=== PATIENT | female | born 1945 | race Two or more races ===

== ENCOUNTER 2018-08-05 19:35 | Emergency (ER) | payer MEDICARE, OTHER ==
[~2018-08-05] VITALS: Ht 157.5 cm; Wt 72.6 kg
[~2018-08-05 19:35] MED LIST: CLIN1TS TOP; CLIN300 PO; HYDACE5 PO; NAPR500 PO; OXYACE5T PO; RXOXYACE PO
== END 2018-08-05 22:29 | disposition left against medical advice (07) ==
LOC: ER 19:35
DX: Z53.21 Procedure and treatment not carried out due to patient leaving prior to being seen by health care provider (principal)
CPT/HCPCS: 36415; 99281-25

== ENCOUNTER → 2021-07-30 | Outpatient (CLI) | payer MEDICARE, OTHER ==
[~2021-07-30] MED LIST changes: +ALPR.5 PO; +AMLO5 PO; +AZIT250 PO; +CELECOXIB200 M1 PO; +CLON.1 PO; +CLOP75 PO; +FLUT.05NI; +LOSA50 PO; +NEBI5 PO; +NICO2 PO; +NICO21TP TD; +PANT40 PO; +SYMBICORT 16010.2 GM INH; +TIOT18 INH; +TRAM50 PO
[2021-07-30 15:30] LABS: BASOPHILS ABSOLUTE AUTO 0.09 K/mm3 (0.00-0.23); BASOPHILS PERCENT AUTO 1 % (0-2); EOSINOPHILS ABSOLUTE AUTO 0.26 K/mm3 (0.00-0.68); EOSINOPHILS PERCENT AUTO 3 % (0-6); Hematocrit 41.5 % (33.0-51.0); Hemoglobin 13.7 g/dL (11.5-16.0); IMMATURE GRAN ABSOLUTE AUTO 0.05 K/mm3 (0.00-0.10); IMMATURE GRAN PERCENT AUTO 1 % (0-1); LYMPHOCYTES ABSOLUTE AUTO 2.95 K/mm3 (0.84-5.20); LYMPHOCYTES PERCENT AUTO 29 % (21-46); MONOCYTES ABSOLUTE AUTO 0.87 K/mm3 (0.16-1.47); MONOCYTES PERCENT AUTO 9 % (4-13); Mean Corpuscular HGB 29.2 pg (26.0-34.0); Mean Corpuscular Volume 89 fL (80-100); Mean Platelet Volume 10.4 fL (9.1-12.4); NEUTROPHILS ABSOLUTE AUTO 5.82 K/mm3 (1.96-9.15); NEUTROPHILS PERCENT AUTO 58 % (41-73); Platelet Count 308 K/mm3 (150-400); RDW Coefficient Variation 14.8 % (11.7-14.2); RDW Standard Deviation 47.8 fL (35.1-46.3); Red Blood Cell Count 4.69 M/mm3 (3.80-5.20); White Blood Cell Count 10.04 K/mm3 (4.00-11.30)
[2021-07-30 15:46] LABS: Albumin, Blood 3.7 g/dL (3.4-5.0); Albumin/Globulin Ratio 0.9 (0.8-1.8); Bilirubin, Total 0.5 mg/dL (0.1-1.0); Bun/Creatinine Ratio 18.4 (12.0-20.0); Calcium, Blood 9.4 mg/dL (8.5-10.1); Creatinine, Blood 1.03 mg/dL (0.40-1.00); Potassium, Blood 4.2 mmol/L (3.5-5.5); Total Protein, Blood 7.7 g/dL (6.4-8.2)
== END | disposition home or self-care (01) ==
LOC: LAB SHORT 15:26
PROVIDERS: Family Medicine
DX: R00.1 Bradycardia, unspecified (principal)
CPT/HCPCS: 80053; 84484; 85025

== ENCOUNTER 2021-09-23 15:01 | Inpatient (IN) | payer MEDICARE, OTHER ==
[~2021-09-23] VITALS: Ht 157.5 cm; Wt 72.5 kg
[~2021-09-23 15:01] MED LIST changes: +LOSA25 PO; -LOSA50 PO
[2021-09-23 15:46] LABS: BASOPHILS ABSOLUTE AUTO 0.08 K/mm3 (0.00-0.23); BASOPHILS PERCENT AUTO 1 % (0-2); EOSINOPHILS ABSOLUTE AUTO 0.33 K/mm3 (0.00-0.68); EOSINOPHILS PERCENT AUTO 3 % (0-6); Hematocrit 39.4 % (33.0-51.0); Hemoglobin 13.1 g/dL (11.5-16.0); IMMATURE GRAN ABSOLUTE AUTO 0.03 K/mm3 (0.00-0.10); IMMATURE GRAN PERCENT AUTO 0 % (0-1); LYMPHOCYTES ABSOLUTE AUTO 3.36 K/mm3 (0.84-5.20); LYMPHOCYTES PERCENT AUTO 34 % (21-46); MONOCYTES PERCENT AUTO 10 % (4-13); Mean Corpuscular HGB 29.4 pg (26.0-34.0); Mean Corpuscular HGB Conc 33.2 g/dL (31.5-36.5); Mean Corpuscular Volume 88 fL (80-100); Mean Platelet Volume 9.8 fL (9.1-12.4); NEUTROPHILS ABSOLUTE AUTO 5.19 K/mm3 (1.96-9.15); NEUTROPHILS PERCENT AUTO 52 % (41-73); Platelet Count 290 K/mm3 (150-400); RDW Coefficient Variation 14.8 % (11.7-14.2); RDW Standard Deviation 48.5 fL (35.1-46.3); Red Blood Cell Count 4.46 M/mm3 (3.80-5.20); White Blood Cell Count 9.99 K/mm3 (4.00-11.30)
[2021-09-23 16:08] LABS: Albumin, Blood 3.5 g/dL (3.4-5.0); Albumin/Globulin Ratio 0.8 (0.8-1.8); Bilirubin, Total 0.3 mg/dL (0.1-1.0); Calcium, Blood 9.3 mg/dL (8.5-10.1); Creatinine, Blood 0.95 mg/dL (0.40-1.00); Globulin, Blood 4.2 g/dL (2.2-4.0); Potassium, Blood 4.2 mmol/L (3.5-5.5); Total Protein, Blood 7.7 g/dL (6.4-8.2)
--- NOTE | 2021-09-23 18:45 | NUR ---
Admit: Patient arrived via gurney from the ED, report recieved from Niya ED RN. Patient is alert and oriented, she denies pain at this time. She is currently SR in the 70s, per RN patient has been as low as the 30s in the emergency room. Patient connected to the zoll and telemetry. Biox 100% on RA. VSS. Patient is able to ambulate independently to the bed with steady gait. She is oriented to the room and call light. Call light in reach, pt given dinner meal tray. She denies other needs at this time, will report to oncoming RN.
[2021-09-23] MEDS ORDERED: ALBU8HFA2 INH (18:46)
[2021-09-23] MEDS ORDERED: AMLO10 PO (18:47)
[2021-09-23] MEDS ORDERED: CATAPRES0.1 MG PO (18:48)
[2021-09-23] MEDS ORDERED: REMERON15 M2 PO (18:49)
--- NOTE | 2021-09-23 21:35 | NUR ---
PT UPDATE PT WAS CHANGED TO DNR STATUS BY MD MOORE IN JUN. THIS RN ENTERED PT ROOM TO APPLY DNR WRISTBAND. PT STATES "I WILL NEVER SIGN A DNR." "I WANT EVERYTHING". CALL PLACED TO MD GREWAL. MD GREWAL WITH FULL CODE ORDERS.
[2021-09-24 04:33] LABS: BASOPHILS PERCENT AUTO 1 % (0-2); EOSINOPHILS ABSOLUTE AUTO 0.41 K/mm3 (0.00-0.68); EOSINOPHILS PERCENT AUTO 4 % (0-6); Hematocrit 39.8 % (33.0-51.0); IMMATURE GRAN ABSOLUTE AUTO 0.03 K/mm3 (0.00-0.10); IMMATURE GRAN PERCENT AUTO 0 % (0-1); LYMPHOCYTES ABSOLUTE AUTO 4.11 K/mm3 (0.84-5.20); LYMPHOCYTES PERCENT AUTO 38 % (21-46); MONOCYTES ABSOLUTE AUTO 1.07 K/mm3 (0.16-1.47); MONOCYTES PERCENT AUTO 10 % (4-13); Mean Corpuscular HGB 29.1 pg (26.0-34.0); Mean Corpuscular HGB Conc 32.7 g/dL (31.5-36.5); Mean Corpuscular Volume 89 fL (80-100); NEUTROPHILS ABSOLUTE AUTO 4.99 K/mm3 (1.96-9.15); NEUTROPHILS PERCENT AUTO 47 % (41-73); Platelet Count 264 K/mm3 (150-400); RDW Coefficient Variation 14.9 % (11.7-14.2); RDW Standard Deviation 48.2 fL (35.1-46.3); Red Blood Cell Count 4.46 M/mm3 (3.80-5.20); White Blood Cell Count 10.71 K/mm3 (4.00-11.30)
[2021-09-24 05:03] LABS: Calcium, Blood 9.2 mg/dL (8.5-10.1); Creatinine, Blood 0.78 mg/dL (0.40-1.00); Potassium, Blood 3.6 mmol/L (3.5-5.5)
--- NOTE | 2021-09-24 05:57 | NUR ---
SHIFT SUMMARY NO ACUTE CHANGES THIS SHIFT. PT ALERT, ANSWERS MOST QUESTIONS APPROPRIATELY, POOR HISTORIAN, IRRITABLE. SP02>90% ON RA. HR TOUCHED LOW 30'S AT START OF SHIFT BUT MAINTAINED MOSTLY 50'S BY END OF SHIFT. PT UP TO BATHROOM SBA W/ FWW TO VOID. NPO SINCE MIDNIGHT. SLEPT SECOND HALF OF SHIFT. CALL LIGHT IN REACH.
--- NOTE | 2021-09-24 08:45 | NUR ---
INITIAL ASSESSMENT: Patient is awake lying in bed watching TV. She denies pain at this time. She states she is in a general state of discomfort from, "all the wires you have hooked up to me." Patient was educated some of the equipment attatched to her is for the purpose of monitoring. HRR, she is in sinus rhythm in the 60s at this time, she does have periods of bradycardia with rates as low as 30. Zoll and atropine at the bedside. LS DIM with EXP in the upper lobes, pt is a 1PPD smoker, nicotine patch in place-pt also has Nicotine lozenges at the bedside-MD aware. BT+. PPP. VSS, this AM. Patient was asking about coffee this AM, I talked with her and let her know she is NPO until we know if she will have a pacemaker placed today. Patient denies other needs at this time. Call light in reach, Bed alarm on for safety.
[2021-09-24] MEDS ORDERED: Acetaminophen650 M1 PO (11:04)
[2021-09-24] MEDS ORDERED: Cyclobenzaprine5 MG PO (11:06)
[2021-09-24] MEDS ORDERED: MIRALAX11910 PO (11:12)
[2021-09-24 12:19] LABS: SARS-Cov-2 (COVID-19) PCR, MMC NEGATIVE (NEGATIVE)
--- NOTE | 2021-09-24 12:30 | NUR ---
UPDATE: Dr. Boyce is here to see the patient, he is going to take her down for a pacemaker in a little bit. Consent signed, pts questions answered and she was educated regarding post pacer precautions-she verbalizes understanding. VSS. Patient denies other needs at this time.
--- NOTE | 2021-09-24 14:30 | NUR ---
Update: Patient returned from her pacemaker placement. She is C/O pain, she is medicated with [place] and ice pack to pacer site. VSS. Patient down to imaging for post pacer X-Ray.
--- NOTE | 2021-09-24 18:29 | NUR ---
Summary: Patient is alert and oriented, forgetful at times and is a poor historian. HR hs been SR in the 50s-60s with the occasional drop down into the 30s in the AM. She had a dual chamber pacemaker placed this afternoon and is occasionally paced. LS DIM with EXP Wheezing in the upper lobes-pt is a pack per day smoker. Biox above 95% on RA T/O the shift. BT+. PPP. VSS. Pacer site to left upper chest with gauze dressing and tegaderm dressing, CDI-no drainage noted. ICE to pacer site and a dose of Stopover given for pain this afternoon. Patient is resting comfortably at this time. Call light in reach, will report to oncoming RN.
[2021-09-25 04:04] LABS: BASOPHILS ABSOLUTE AUTO 0.07 K/mm3 (0.00-0.23); BASOPHILS PERCENT AUTO 1 % (0-2); EOSINOPHILS ABSOLUTE AUTO 0.35 K/mm3 (0.00-0.68); EOSINOPHILS PERCENT AUTO 3 % (0-6); Hematocrit 38.7 % (33.0-51.0); Hemoglobin 12.6 g/dL (11.5-16.0); IMMATURE GRAN ABSOLUTE AUTO 0.05 K/mm3 (0.00-0.10); IMMATURE GRAN PERCENT AUTO 0 % (0-1); LYMPHOCYTES ABSOLUTE AUTO 3.06 K/mm3 (0.84-5.20); LYMPHOCYTES PERCENT AUTO 26 % (21-46); MONOCYTES ABSOLUTE AUTO 0.94 K/mm3 (0.16-1.47); MONOCYTES PERCENT AUTO 8 % (4-13); Mean Corpuscular HGB 29.2 pg (26.0-34.0); Mean Corpuscular HGB Conc 32.6 g/dL (31.5-36.5); Mean Corpuscular Volume 90 fL (80-100); Mean Platelet Volume 9.8 fL (9.1-12.4); NEUTROPHILS ABSOLUTE AUTO 7.28 K/mm3 (1.96-9.15); NEUTROPHILS PERCENT AUTO 62 % (41-73); Platelet Count 240 K/mm3 (150-400); RDW Coefficient Variation 14.8 % (11.7-14.2); RDW Standard Deviation 49.5 fL (35.1-46.3); Red Blood Cell Count 4.31 M/mm3 (3.80-5.20); White Blood Cell Count 11.75 K/mm3 (4.00-11.30)
[2021-09-25 04:24] LABS: Calcium, Blood 9.1 mg/dL (8.5-10.1); Creatinine, Blood 0.87 mg/dL (0.40-1.00); Potassium, Blood 3.9 mmol/L (3.5-5.5)
--- NOTE | 2021-09-25 05:31 | NUR ---
SHIFT SUMMARY PT ALERT AND ORIENTED X4. AFEBRILE, BP STABLE. ON RA SATS OVER 90%. HR SR 50-70'S. PAIN AND TENDERNESS POST PACER PLACEMENT ON L CHEST. MEDICATED PER EMAR AND REPOSITIONING. INDEPENDENT FOR ADLS. ANXIOUS AT TIMES, COMFORTABLE WITH RN IN ROOM CONVERSING ABOUT CARE. IN BED SLEEPING WITH CALL ALARM AT SIDE, WILL CONTINUE TO MONITOR UNTIL REPORT GIVEN TO DAYSHIFT RN
[2021-09-25] MEDS ORDERED: Percocet 5-3251 EACH PO (09:17)
--- NOTE | 2021-09-25 11:00 | NUR ---
ASSUMED CARE OF PT AT 0700. PT IS ALERT AND ORIENTED TO SELF, FAMILY, AND FOLLOWING DIRECTIONS. PT DISORIENTED TO PLACE. PT HAS A HISTORY OF DEMENTIA, AND IS VERY FORGETGUL, PT C/O DULL PAIN 8/10 TO LEFT CHEST (PACEMAKER SITE), PT MEDICATED PER EMAR. PT ON ROOM AIR WITH SPO2 ABOVE 90% PT IN SR WITH HR IN THE 80'S, BLOOD PRESSURE STABLE. PT WALKING IN ROOM, SLING APPLIED TO LEFT ARM AND PT INSTRUCTED NOT TO USE IT. AT 1045 DISCHARGE INSTRUCTIONS PROVIDED TO DAUGHTER. IV REMOVED, BELONGINGS RETURNED AT 1100.
== END 2021-09-25 11:00 | disposition home or self-care (01) | DRG 243 ==
LOC: ER 15:01 → PCU 18:02
PROVIDERS: Internal Medicine Cardiovascular Disease; Physician Assistant; ADMIT Family Medicine
PROC: 0JH606Z Insertion of Pacemaker, Dual Chamber into Chest Subcutaneous Tissue and Fascia, Open Approach (ICD-10-PCS; principal; 2021-09-24)
PROC: 02HK3JZ Insertion of Pacemaker Lead into Right Ventricle, Percutaneous Approach (ICD-10-PCS; 2021-09-24)
PROC: 02H63JZ Insertion of Pacemaker Lead into Right Atrium, Percutaneous Approach (ICD-10-PCS; 2021-09-24)
DX: I49.5 Sick sinus syndrome (principal); F17.213 Nicotine dependence, cigarettes, with withdrawal; Z20.822 Contact with and (suspected) exposure to COVID-19; Z66 Do not resuscitate; J44.9 Chronic obstructive pulmonary disease, unspecified; F32.A Depression, unspecified; I10 Essential (primary) hypertension; I48.0 Paroxysmal atrial fibrillation; Z86.73 Personal history of transient ischemic attack (TIA), and cerebral infarction without residual deficits; Z88.8 Allergy status to other drugs, medicaments and biological substances; Z91.048 Other nonmedicinal substance allergy status; Z91.040 Latex allergy status; Z79.899 Other long term (current) drug therapy
CPT/HCPCS: 33208; 36415; 71045; 71046; 80048; 80053; 84484; 85025; 93005; 93010; 93306; 94640; 94664; 94760; 98960; 99152; 99153; 99285-25; 99406; A9270; C1781; C1785; C1894; C1898; J0461; J0690; J1580; J1644; J2250; J3010; J7040; U0004

== ENCOUNTER 2024-10-08 20:10 | Emergency (ER) | payer MEDICARE, OTHER ==
[~2024-10-08] VITALS: Ht 157.5 cm; Wt 59.0 kg
[~2024-10-08 20:10] MED LIST changes: +ALBU8HFA2 INH; +AMLO10 PO; +Acetaminophen650 M1 PO; +CATAPRES0.1 MG PO; +Cyclobenzaprine5 MG PO; +MIRALAX11910 PO; +Percocet 5-3251 EACH PO; +REMERON15 M2 PO
[2024-10-08 20:19] VITALS: BP 161/58
[2024-10-08] MEDS ORDERED: NS 1,000 ML IV SCH (20:50)
[2024-10-08 20:51] LABS: BASOPHILS ABSOLUTE AUTO 0.07 K/mm3 (0.00-0.23); BASOPHILS PERCENT AUTO 1 % (0-2); EOSINOPHILS ABSOLUTE AUTO 0.13 K/mm3 (0.00-0.68); EOSINOPHILS PERCENT AUTO 1 % (0-6); Hemoglobin 10.8 g/dL (11.5-16.0); IMMATURE GRAN ABSOLUTE AUTO 0.05 K/mm3 (0.00-0.10); IMMATURE GRAN PERCENT AUTO 0 % (0-1); LYMPHOCYTES ABSOLUTE AUTO 3.08 K/mm3 (0.84-5.20); LYMPHOCYTES PERCENT AUTO 23 % (21-46); MONOCYTES ABSOLUTE AUTO 1.26 K/mm3 (0.16-1.47); MONOCYTES PERCENT AUTO 9 % (4-13); Mean Corpuscular HGB Conc 32.7 g/dL (31.5-36.5); Mean Corpuscular Volume 86 fL (80-100); NEUTROPHILS ABSOLUTE AUTO 8.94 K/mm3 (1.96-9.15); NEUTROPHILS PERCENT AUTO 66 % (41-73); Platelet Count 355 K/mm3 (150-400); RDW Coefficient Variation 14.6 % (11.7-14.2); RDW Standard Deviation 45.1 fL (35.1-46.3); Red Blood Cell Count 3.86 M/mm3 (3.80-5.20); White Blood Cell Count 13.53 K/mm3 (4.00-11.30)
[2024-10-08 21:13] LABS: Albumin, Blood 2.7 g/dL (3.4-5.0); Albumin/Globulin Ratio 0.7 (0.8-1.8); Bilirubin, Total 0.4 mg/dL (0.1-1.0); Calcium, Blood 8.7 mg/dL (8.5-10.1); Creatinine, Blood 0.9 mg/dL (0.40-1.00); Globulin, Blood 4.1 g/dL (2.2-4.0); Total Protein, Blood 6.8 g/dL (6.4-8.2)
[2024-10-08 21:23] LABS: Source, Urine Straight Cath
[2024-10-08 21:27] LABS: Appearance, Urine Hazy (Clear); Bilirubin, Urine Neg (Neg); Blood, Urine 5+ (Neg); Color, Urine Yellow (P-Yellow); Glucose Qualitative, Urine Neg (Neg); Ketones, Urine Neg (Neg); Leukocyte Esterase, Urine 3+ (Neg); Nitrite, Urine Neg (Neg); Protein, Urine 3+ (Neg); Specific Gravity, Urine 1.015 (1.003-1.022); Urobilinogen, Urine NORM (Normal)
[2024-10-08] MEDS ORDERED: Potassium Chloride 20 MEQ TabCR PO ONE (21:30)
[2024-10-08 21:34] LABS: Amorphous Mod (0-Heavy); Bacteria Many /hpf; Red Blood Cells, Urine 25-50 /hpf (0-2); Squamous Epithelial Cells Rare /hpf (Few)
[2024-10-08] MEDS ORDERED: CefTRIAXone Sodium 1,000 MG in NS 50 ML IV ONE (21:50)
[2024-10-08] MEDS ORDERED: POTCHL20ER PO (21:53)
[2024-10-08] MEDS ORDERED: CEPH500 PO (21:53)
== END 2024-10-08 22:59 | disposition home or self-care (01) ==
LOC: ER 20:10
PROVIDERS: Emergency Medicine
DX: N39.0 Urinary tract infection, site not specified (principal); E87.6 Hypokalemia
CPT/HCPCS: 80053; 81001; 85025; 87086; 93005; 93010; 96361; 96365; 99283-25; A9270; J0696; J7030